=== PATIENT | female | born 2000 | race African-American/Black ===

== ENCOUNTER 2020-05-31 07:04 | Emergency (ER) | payer MEDICAID ==
[~2020-05-31] VITALS: Ht 177.8 cm; Wt 66.0 kg
[2020-05-31] MEDS ORDERED: MORPHINE SULFATE 4 MG/ML CPJ (NOT FOR IM USE) IV STA (07:14)
[2020-05-31] MEDS ORDERED: ONDANSETRON HCL 4MG/2ML INJ IV STA (07:14)
[2020-05-31] MEDS ORDERED: PROPOFOL 200MG/20ML VIAL IV ONE (07:15)
[2020-05-31] MEDS ORDERED: SODIUM CHLORIDE 0.9% 1,000 ML IV ONE (07:15)
[2020-05-31] MEDS ORDERED: KETAMINE HCL 50 MG/ML 10ML IV ONE (07:15)
[2020-05-31 09:35] VITALS: BP 131/73
== END 2020-05-31 10:47 | disposition home or self-care (01) ==
LOC: ER 07:23
DX: S43.014A Anterior dislocation of right humerus, initial encounter (principal); F12.10 Cannabis abuse, uncomplicated; F17.210 Nicotine dependence, cigarettes, uncomplicated; X58.XXXA Exposure to other specified factors, initial encounter; Y93.89 Activity, other specified; Y92.018 Other place in single-family (private) house as the place of occurrence of the external cause
CPT/HCPCS: 23650; 73030; 93005; 96361; 96374; 96375; 99152; 99285; J2270; J2405; J2704; J3490; J7030